=== PATIENT | male | born 1990 | race Two or more races ===

== ENCOUNTER 2017-03-22 01:09 | Emergency (ER) | payer BC ==
[~2017-03-22] VITALS: Ht 165.1 cm; Wt 77.1 kg
[2017-03-22 01:19] VITALS: BP 137/96
[2017-03-22] MEDS ORDERED: BACITRACIN-POLYMYXIN B TOPICAL OINT UD TOP ONE (04:50)
[2017-03-22] MEDS ORDERED: LIDOCAINE 1% HCL (LOCAL ANESTH.) INJ 20ML MDV IJ ONE (05:00)
[2017-03-22] MEDS ORDERED: BACITRACIN TOP OINT 1 UD PKG TOP ONE (05:00)
[2017-03-22] MEDS ORDERED: TETANUS-DIPTH-ACEL PERTUSSIS 0.5ML SYRG IM ONE (05:00)
== END 2017-03-22 05:10 | disposition home or self-care (01) ==
LOC: ER 01:12
DX: S01.511A Laceration without foreign body of lip, initial encounter (principal); S00.83XA Contusion of other part of head, initial encounter; F17.210 Nicotine dependence, cigarettes, uncomplicated; W22.8XXA Striking against or struck by other objects, initial encounter; Y93.89 Activity, other specified; Y92.89 Other specified places as the place of occurrence of the external cause; Y99.8 Other external cause status
CPT/HCPCS: 12013; 90471; 90715; 99283; J2001

== ENCOUNTER 2019-11-03 14:25 | Emergency (ER) | payer BC ==
[~2019-11-03] VITALS: Ht 165.1 cm; Wt 77.1 kg
[2019-11-03 14:39] VITALS: BP 102/70
[2019-11-03] MEDS ORDERED: cefTRIAXone SOD 1,000 MG VL IM ONE (15:45)
[2019-11-03] MEDS ORDERED: methylPREDNISolone SOD SUCC 125 MG/2 ML VL IM ONE (15:45)
== END 2019-11-03 16:14 | disposition home or self-care (01) ==
LOC: ER 14:25
DX: J03.90 Acute tonsillitis, unspecified (principal); F17.210 Nicotine dependence, cigarettes, uncomplicated
CPT/HCPCS: 96372; 99284; J0696; J2930